=== PATIENT | male | born 1985 | race Caucasian/White ===

== ENCOUNTER 2022-09-10 09:06 | Outpatient (CLI) | payer BC, SELFPAY ==
[2022-09-10 12:33] LABS: Chloride* 101 mmol/L (96-114); Sodium* 138 mmol/L (135-149)
[2022-09-10 12:34] LABS: Potassium* 4.2 mmol/L (3.6-5.1)
[2022-09-10 12:36] LABS: Blood Urea Nitrogen* 13 mg/dL (5-24); Carbon Dioxide* 26 mmol/L (20-32); Cholesterol* 183 mg/dL (90-199); Creatinine* 0.7 mg/dL (0.5-1.5); Estimated Glomerular Filt Rate 120 ml/min
[2022-09-10 12:37] LABS: Calcium* 9.6 mg/dL (8.4-10.6); HDL Cholesterol* 50 mg/dL (>=40); LDL Cholesterol Calculated 116 mg/dL (<100); Triglycerides* 84 mg/dL (40-149)
[2022-09-10 14:04] LABS: Glucose* 88 mg/dL (60-115)
== END 2022-09-10 09:07 | disposition home or self-care (01) ==
PROVIDERS: PCP Family Medicine; Visit Provider Family Medicine
DX: Z00.00 Encounter for general adult medical examination without abnormal findings (principal); Z13.6 Encounter for screening for cardiovascular disorders
CPT/HCPCS: 80048; 80061

== ENCOUNTER 2022-12-24 09:48 | Outpatient (CLI) | payer BC, SELFPAY ==
--- NOTE | 2022-12-24 10:00 | CT_ITS ---
Final Report Patient: KEERTHI FIELD Facility:?[facility] Patient ID:?[id number] Site Patient ID:?[id number]. Site :?[id number] Study:?CT Abdomen/Pelvis W/O-12/24/2022 10:08:01 AM Ordering Physician:Makenna Johnson Final Report: INDICATION: Lower abdominal wall pain. COMPARISON: None. TECHNIQUE: Noncontrast CT scan of the abdomen and pelvis was performed. Axial images and multiplanar reformations were reviewed. FINDINGS: The lung bases are clear. The unenhanced liver, gallbladder, pancreas, spleen and adrenal glands have normal appearances. The kidneys, ureters and urinary bladder are unremarkable. The prostate is normal. The stomach, small bowel and colon are unremarkable. The appendix is normal. The abdominal aorta is unremarkable. No pathologically enlarged lymph nodes are identified. No abdominal wall hernia or mass is identified. There is degenerative disc disease and facet arthrosis at L5-S1. No fracture or suspicious bone lesion is identified. IMPRESSION: No acute abnormality. Please note that all CT scans at this facility use dose modulation, iterative reconstruction, and/or weight-based dosing when appropriate to reduce radiation dose to as low as reasonably achievable. Dictated by Vinay Elam MD @ 12/24/2022 10:42:18 AM (Electronic Signature)
== END 2022-12-24 09:49 | disposition home or self-care (01) ==
PROVIDERS: PCP Family Medicine; Visit Provider Family Medicine
DX: R10.9 Unspecified abdominal pain (principal)
CPT/HCPCS: 74176

== ENCOUNTER 2023-06-15 14:25 | Outpatient (CLI) | payer BC, SELFPAY | END 2023-06-15 14:26 | disposition home or self-care (01) | LOC: LKVREF 14:27 | PROVIDERS: PCP Family Medicine; Visit Provider Emergency Medicine | DX: J20.9 Acute bronchitis, unspecified (principal) | CPT/HCPCS: 86140 ==

== ENCOUNTER 2025-05-16 09:01 | Outpatient (CLI) | payer BC, SELFPAY | END 2025-05-16 09:02 | disposition home or self-care (01) | PROVIDERS: PCP Family Medicine; Visit Provider Family Medicine | DX: R60.0 Localized edema (principal); Z13.6 Encounter for screening for cardiovascular disorders | CPT/HCPCS: 80053; 80061 ==

== ENCOUNTER 2025-05-20 07:01 | Outpatient (CLI) | payer BC, SELFPAY ==
--- NOTE | 2025-05-20 07:15 | CRLHL7_ITS ---
For Patients: As a result of the Century Cures Act, medical imaging exams and procedure reports are released immediately into your electronic medical record. You may view this report before your referring provider. If you have questions, please contact your health care provider. INDICATION: Right lower extremity edema TECHNIQUE: Ultrasound venous duplex lower right extremity. Compression venous exam was performed using paredes-scale, color Doppler, and spectral Doppler imaging. COMPARISON: None. FINDINGS: Sonographic imaging demonstrates the right common femoral, deep femoral, superficial femoral, popliteal, posterior tibial and greater saphenous and the contralateral left common femoral veins to be fully compressible with normal color Doppler blood flow. Minimal subcutaneous edema near the right ankle without focal fluid collection. IMPRESSION: Normal right lower extremity venous ultrasound, no sign of deep venous thrombosis. Dictated by John Pérez MD @ 05/20/2025 8:17:32 AM (Electronically Signed)
== END 2025-05-20 07:02 | disposition home or self-care (01) ==
LOC: US 07:02
PROVIDERS: PCP Family Medicine; Visit Provider Family Medicine
DX: R60.0 Localized edema (principal)
CPT/HCPCS: 93971